=== PATIENT | female | born 1965 | race Caucasian/White ===

== ENCOUNTER 2017-03-07 16:00 | Emergency (ER) | payer OTHER ==
[~2017-03-07] VITALS: Ht 165.1 cm; Wt 84.5 kg
[2017-03-07 16:04] VITALS: Ht 165.1 cm; Wt 84.5 kg
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
[2017-03-07] MEDS ORDERED: KETOROLAC 30 MG INJ IM STA (17:44)
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
[2017-03-07] MEDS ORDERED: HYDROCODONE/APAP (5/325) TAB PO ONE (18:00)
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
[2017-03-07] MEDS ORDERED: IBUP-1542 PO (19:56)
[2017-03-07] MEDS ORDERED: HYDR-906 PO (19:56)
[2017-03-07 20:13] VITALS: BP 157/95; PULSE 96; RESP 16
== END 2017-03-07 20:14 | disposition home or self-care (01) ==
LOC: FTE 16:00
DX: S09.90XA Unspecified injury of head, initial encounter (principal); S19.9XXA Unspecified injury of neck, initial encounter; R51 Headache; I10 Essential (primary) hypertension; V49.50XA Passenger injured in collision with unspecified motor vehicles in traffic accident, initial encounter
CPT/HCPCS: 70450; 71010; 72040; 72072; 72100; 72125; 76705; 96372; J1885; Z7502; Z7610